=== PATIENT | male | born 1940 | race African-American/Black ===

== ENCOUNTER 2020-06-28 03:15 | Emergency (ER) | payer OTHER, MEDICAID, SELFPAY ==
[~2020-06-28] VITALS: Ht 182.9 cm; Wt 81.6 kg
[2020-06-28 03:15] VITALS: BP_SYST 143
--- NOTE | 2020-06-28 03:20 | NUR ---
Placed in room 7 . Placed on panel monitor, blood pressure machine and pulse oximeter. To gown for exam. Side rails up.
--- NOTE | 2020-06-28 03:23 | NUR ---
ER at bedside examining patient.
--- NOTE | 2020-06-28 03:25 | NUR ---
Pt art from [facility] for hallucinations and stating he is " missing his heart". Denies SI. Facility needed medical clearance to [facility], room 58[address]. Denies cough, sob and fever. Full code, polst form provided.
--- NOTE | 2020-06-28 03:35 | NUR ---
Urine dip given to , urine sent to Lab.
[2020-06-28 03:56] LABS: BILIRUBIN,URINE NEGATIVE (NEGATIVE); BLOOD, URINE NEGATIVE (NEGATIVE); CLARITY/URINE CLEAR (CLEAR); COLOR,URINE YELLOW (YELLOW); GLUCOSE,URINE NEGATIVE (NEGATIVE); KETONES,URINE NEGATIVE (NEGATIVE); LEUKOCYTE ESTERASE ,URINE NEGATIVE (NEGATIVE); NITRITE, URINE NEGATIVE (NEGATIVE); PROTEIN URINE NEGATIVE (NEGATIVE); UROBILINOGEN,URINE 0.2 (0.2-1.0)
[2020-06-28 04:07] LABS: BARBITURATE, URINE NEGATIVE (NEG <=200); BENZODIAZEPINE, URINE POSITIVE (NEG <=150); CANNABINOID, URINE NEGATIVE (NEG <=50); COCAINE, URINE NEGATIVE (NEG <=150); METHAMPHETAMINES SCREEN,URINE NEGATIVE (NEG <=500); OPIATE, URINE NEGATIVE (NEG <=100); PHENCYCLIDINE SCREEN,URINE NEGATIVE (NEG <=25); UR TRICYCLIC ANTIDEPRESSANTS NEGATIVE (NEG <=300); URINE AMPHETAMINE NEGATIVE (NEG <=500); URINE METHADONE NEGATIVE (NEG <=200); URINE OXYCODONE SCREEN NEGATIVE (NEG <=100); URINE PROPOXYPHENE SCREEN NEGATIVE (NEG <=300)
[2020-06-28 04:22] LABS: MONOCYTES # (AUTO) 0.4 K/uL (0.0-1.0)
[2020-06-28 04:35] LABS: ANION GAP 4 (5-15); CALCIUM 8.6 mg/dL (8.4-11.0); CHLORIDE 99 mmol/L (98-107); CREATININE 1.02 mg/dL (0.55-1.30); GLUCOSE 95 mg/dL (70-99); POTASSIUM 3.9 mmol/L (3.5-5.1); SODIUM SERUM 135 mmol/L (136-145); UREA NITROGEN, BLOOD 14 mg/dL (8-21)
[2020-06-28 04:36] LABS: BASOPHILS % (AUTO) 0.3 % (0.0-2.0); EOSINOPHILS % (AUTO) 1.5 % (0.0-4.0); HEMATOCRIT 40.2 % (36-54); HEMOGLOBIN 13.5 g/dL (14.0-18.0); LYMPHOCYTES # (AUTO) 0.9 K/uL (1.0-5.5); LYMPHOCYTES % (AUTO) 28.3 % (20.5-51.5); MEAN CORPUSCULAR HEMOGLOBIN 34 pg (27-31); MEAN CORPUSCULAR HGB CONC 34 % (32-36); MEAN CORPUSCULAR VOLUME 100 fL (79.0-98.0); MONOCYTES % (AUTO) 12.7 % (1.7-9.3); NEUTROPHILS # (AUTO) 1.8 K/uL (1.8-7.7); NEUTROPHILS % (AUTO) 57.2 % (40.0-70.0); PLATELET COUNT (AUTO) 192 K/uL (130-430); RED BLOOD CELL COUNT(AUTO) 4.04 MIL/uL (4.2-6.2); RED CELL DISTRIBUTION WIDTH 13.2 % (9.0-15.0); WHITE BLOOD COUNT (AUTO) 3.1 K/uL (4.8-10.8)
[2020-06-28 04:39] LABS: ALANINE AMINOTRANSFERASE 23 U/L (12-78); ALBUMIN 3.5 g/dL (3.4-4.8); ASPARTATE AMINOTRANSFERASE 22 U/L (10-37); CHOLESTEROL 185 mg/dL (<200); HDL CHOLESTEROL 51 mg/dL (>45); LDL CHOLESTEROL 125 mg/dL (<100); TOTAL BILIRUBIN 0.5 mg/dL (0.0-1.0); TRIGLYCERIDES 54 mg/dL (30-150)
[2020-06-28 04:40] LABS: ACETAMINOPHEN 2 ug/mL (1-30); ALCOHOL, BLOOD < 3 mg/dL (<10)
--- NOTE | 2020-06-28 04:40 | NUR ---
Pt resting, symmetric chest rise and fall. No complaints at this time.
[2020-06-28] MEDS ORDERED: DIPHENHYDRAMINE HCL 25 MG CAPSULE PO ONE (04:45)
--- NOTE | 2020-06-28 05:00 | NUR ---
[facility] ETA 0545AM-0600AM
--- NOTE | 2020-06-28 05:01 | NUR ---
Aden Cohn called for report. Report given to TWIN. ETA for ambulance 0545-0600am.
--- NOTE | 2020-06-28 06:00 | NUR ---
Pt resting, symmetric chest rise and fall, easily aroused.
[2020-06-28 06:48] VITALS: BP_SYST 143
--- NOTE | 2020-06-28 06:48 | NUR ---
Patient to be transferred to [facility] . Is being transferred due to higher level of care. Receiving facility has accepting physician and available space. ER physician has signed transfer form. Patient or responsible constitution party has agreed to transfer and signed form. Patient belongings inventoried and will be sent with patient. Copy of nursing notes, lab reports, EKG, Physicians Orders and X-rays to be sent with patient. Report called to TWIN @[phone] at receiving facility. Receiving physician is DR HUBBARD. [facility] ambulance service has been called for transfer.
== END 2020-06-28 06:48 ==
LOC: SED 03:15
DX: F22 Delusional disorders (principal); I10 Essential (primary) hypertension; Z20.828 Contact with and (suspected) exposure to other viral communicable diseases
CPT/HCPCS: 36415; 80053; 80061; 80307; 81003; 83036; 87081; 87426; 99285; 85025; G0480; G0481; G0482; Q0163